=== PATIENT | female | born 1975 | race Caucasian/White ===

== ENCOUNTER 2020-11-16 19:10 | Emergency (ER) | payer MEDICAID, OTHER ==
[~2020-11-16 19:10] MED LIST: Acetaminophen/oxyCODONE 325-5 MG Tab ONE
[2020-11-16] MEDS ORDERED: HYDROmorphone 2 MG/ML SDV IM ONE (19:24)
[2020-11-16] MEDS ORDERED: Ketorolac 60 MG/2 ML SDV IM ONE (19:24)
--- NOTE | 2020-11-16 22:03 | ER ---
HISTORY OF PRESENT ILLNESS: A 44-year-old lady here with complaints of falling last evening in the apartment she is staying in. She fell for really no reason, just lost her balance, she tells me. She thinks she could have tripped over a carpet. She has been just taking it easy today, but the pain seems to keep getting worse. She is pointing to the left hip area lateral aspect when describing the area of pain. She states that her pain is currently 15/10. The patient denies any pain, numbness, or tingling radiating down her leg. She tells me that she does have a pain contract for Percocet 10/325 that she usually takes on a p.r.n. basis for low back pain issues and she is out of those medications. She also has Flexeril that she can take. She states she does not usually use NSAIDs very often because of some involvement with her kidneys. OBJECTIVE: GENERAL APPEARANCE: The patient is awake and alert. She is obviously uncomfortable. VITAL SIGNS: Reviewed as listed. MUSCULOSKELETAL: Examining the left hip reveals the skin is intact. There is no bruising or discoloration. The entire lateral radiating around to the posterior aspect is the area that is painful. She states that she was having pain on the front, but this seems to have improved over the course of the day. The patient has a lot of trouble trying to move her left leg at this time. LABORATORY DATA AND X-RAY: X-ray of the left hip was obtained. Radiologist report is negative for fracture. DIAGNOSIS: Contusion injury to left hip. TREATMENT PLAN: The patient was given Toradol 60 mg IM and Dilaudid 2 mg IM. She states this brought her pain down to a tolerable level. She is to be discharged with crutches. Activity should be minimal with the use of crutches and minimal weightbearing with the left leg. I will give her a small take-home bottle of Percocet 5/325. She is to use these as needed and she is to make sure she takes her Flexeril. She is to apply ice frequently, and followup should be in the clinic in 2 to 3 days and followup sooner as needed. The patient is agreeable with the treatment plan and has no further questions. CRS/MODL /[id number]
--- NOTE | 2020-11-17 08:13 | CR ---
Date of Service: 11/16/20 Clinical Data: Hip pain after falling. PELVIS AND LEFT HIP: No priors. No acute fracture or dislocation. No lytic or blastic bone lesions. There is degenerative disk disease at multiple levels in the lower lumbar spine. No other significant findings. [id number] [facility]
== END 2020-11-16 21:10 | disposition home or self-care (01) ==
LOC: LB.ED 19:10
DX: S70.02XA Contusion of left hip, initial encounter (principal); W18.39XA Other fall on same level, initial encounter
CPT/HCPCS: 73502-LT; 96372; 99283; 99283-25; A9270-GY; J1170; J1885

== ENCOUNTER 2020-11-17 02:10 | Emergency (ER) | payer MEDICAID, OTHER ==
[2020-11-17] MEDS ORDERED: Sodium Chloride 0.9% 1,000 ML IV ONE ×2 (02:21→02:22)
[2020-11-17] MEDS ORDERED: EPINEPHrine 1:10,000 1 MG/10 ML Syringe IVPUSH ONE (02:21)
[2020-11-17] MEDS ORDERED: Naloxone 2 MG/2 ML Syringe IVPUSH PRN ×2 (02:25)
[2020-11-17] MEDS ORDERED: 50% Dextrose in Water 50 ML Syringe IVPUSH ONE ×3 (02:45→03:06)
--- NOTE | 2020-11-17 04:12 | ER ---
HISTORY OF PRESENT ILLNESS: A 44-year-old lady who came in by ambulance in full cardiac arrest with CPR in progress. Her significant other tells me that she woke him up and she was shaky and did not feel good. He is not sure if she was having a diabetic reaction or a seizure. Then, she became unresponsive and he started CPR. They live only about half a mile from the hospital. There was no pulse and no breathing. Shock was not necessary per AED upon arriving to the ER. Initial treatment plan: Two IO sites were obtained. The patient was given epi 1 mg followed by Narcan 2 mg. We repeated this x1, D50 was given 1 amp as well and normal saline was started in bolus form. I started to palpate a pulse shortly afterwards and the pulse became stronger. CPR was discontinued and the patient had a pulse initially in the 40s, which became stronger and then it was not long and she was starting to attempt to breathe. A Agustín airway had been put in initially upon arrival at the ER and the patient returned to spontaneous circulation gradually getting a more steady and regular pulse and regular breathing. She did have a blood pressure at this time initially in the 80/40 range, which improved as well over the next few minutes. Blood sugar was read initially by EMS as high, a 2nd blood sugar was taken, read as low. She was then given the D50 and this was repeated x1. Her vitals continued to improve. The 2nd blood pressure was in the 140/80 range and the patient at this point was responding to painful stimuli. DIAGNOSIS: Cardiac arrest with return of spontaneous circulation, etiology yet unclear. TREATMENT PLAN: At this point, arrangements were made to [facility] the patient to [place]. Dr. Shetty, street light lamp cleaner accepted the patient and she was transferred from our facility approximately 3:30 a.m by [facility]. CRS/MODL /[id number] SRIDHAR
--- NOTE | 2020-11-17 08:17 | CR ---
Date of Service: 01/17/21 Clinical Data: CPR AP CHEST: No priors. The patient has taken a very poor inspiration The heart size is normal. The pulmonary vasculature appears prominent with cephalization of flow. There are poorly defined infiltrates in both upper lungs. The lungs are otherwise clear. No pneumothorax. No pleural effusions. [id number] [facility]
== END 2020-11-17 03:23 ==
LOC: LB.ED 02:10
DX: I46.9 Cardiac arrest, cause unspecified (principal)
CPT/HCPCS: 36415; 36680; 51702; 71045; 80053; 80307; 84484; 85025; 85610; 92950; 93005; 99285-25; A0425; A0429; J0171; J2310; J7030

== ENCOUNTER 2020-11-22 18:10 | Emergency (ER) | payer MEDICAID ==
--- NOTE | 2020-11-22 18:17 | EDM.PDOC ---
ED HPI GENERAL MEDICAL PROBLEM - General Chief Complaint: General Stated Complaint: ABDOMINAL PAIN Time Seen by Provider: 11/22/20 18:16 Source of Information: Reports: Patient History Limitations: Reports: No Limitations - History of Present Illness INITIAL COMMENTS - FREE TEXT/NARRATIVE: presented to the ER with a c/o b/l lower rib cage pain. Reports that she was recently d/cd from OSH after she was admitted for care post -CPR on her. c/o pain at the site of Macario CPR. no fever or chills. no cough. is using oxycodone - but reports it's not taking care of her pain. Onset: Gradual Duration: Day(s): (3) Location: Reports: Chest Quality: Reports: Ache Severity: Severe Improves with: Reports: None Worsens with: Reports: Movement Mid-Sternal Chest Pain Score (Numeric/FACES): 9 - Related Data Allergies Allergy/AdvReac Type Severity Reaction Status Date / Time morphine Allergy Nausea Verified 11/22/20 18:30 Sulfa (Sulfonamide Allergy Rash Verified 11/22/20 18:30 Antibiotics) sulfamethoxazole Allergy Indigestion Verified 11/22/20 18:30 [From Bactrim] trimethoprim [From Bactrim] Allergy Indigestion Verified 11/22/20 18:30 Home Meds: Home Meds Acyclovir 400 mg PO BID 11/16/20 [History] Amylase/Lipase/Protease [Creon DR 12,000 Units] 1 cap PO DAILY 11/16/20 [Hi story] Cyclobenzaprine [Flexeril] 1 tab PO BID 11/16/20 [History] Fluconazole [Diflucan] 200 mg PO WEEKLY 11/16/20 [History] Furosemide [Lasix] 20 mg PO DAILY 11/16/20 [History] Gabapentin [Neurontin] 300 mg PO TID 11/16/20 [History] Insulin Detemir [Levemir Flextouch] 35 units SQ BID 11/16/20 [History] Liraglutide [Victoza] 1.8 units SQ DAILY 11/16/20 [History] Ondansetron [Zofran ODT] 4 mg PO DAILY 11/16/20 [History] Pantoprazole 20 mg PO BIDAC 11/16/20 [History] allopurinoL [Zyloprim] 1 tab PO DAILY 11/16/20 [History] carvediloL [Carvedilol] 12.5 mg PO BID 11/16/20 [History] lisinopriL [Lisinopril] 1 tab PO BID 11/16/20 [History] oxyCODONE HCl/Acetaminophen [Percocet 10-325 mg Tablet] 1 tab PO Q6H PRN 11/16/20 [History] Ketorolac [Toradol] 10 mg PO Q6H PRN #12 tab 11/22/20 [Rx] Past Medical History Cardiovascular History: Reports: Hypertension Gastrointestinal History: Reports: Pancreatitis Musculoskeletal History: Reports: Back Pain, Chronic, Fracture Other Musculoskeletal History: right ankle Endocrine/Metabolic History: Reports: Diabetes, Type II Social & Family History - Family History Family Medical History: Unobtainable - Caffeine Use Caffeine Use: Reports: Coffee, Soda ED ROS GENERAL - Review of Systems Review Of Systems: See Below Constitutional: Reports: No Symptoms HEENT: Reports: No Symptoms Cardiovascular: Reports: No Symptoms GI/Abdominal: Reports: No Symptoms Skin: Reports: No Symptoms Neurological: Reports: No Symptoms Psychiatric: Reports: No Symptoms ED EXAM, GENERAL - Physical Exam Exam: See Below Exam Limited By: No Limitations General Appearance: Alert, WD/WN, No Apparent Distress Eye Exam: Bilateral Eye: EOMI Respiratory/Chest: No Respiratory Distress, Lungs Clear, Other (mild TTP over b/l ribs and sternum) Cardiovascular: Normal Peripheral Pulses, Regular Rate, Rhythm GI/Abdominal: Normal Bowel Sounds, Soft, Non-Tender Neurological: Alert, Oriented, No Motor/Sensory Deficits Psychiatric: Normal Affect, Anxious Course - Vital Signs Last Recorded V/S: Last Vital Signs Temp 36.6 C 11/22/20 18:10 Pulse 94 11/22/20 18:10 Resp 16 11/22/20 18:10 BP 139/90 11/22/20 18:10 Pulse Ox 97 11/22/20 18:10 - Orders/Labs/Meds Orders: Active Orders 24 hr Category Date Time Status CXR [Chest 1V Frontal] [CR] Stat Exams 11/22/20 19:17 Ordered Labs: Laboratory Tests 11/22/20 11/22/20 Range/Units 18:35 18:35 WBC 7.6 D (4.0-11.0) K/uL RBC 3.38 L (3.80-5.80) M/uL Hgb 9.8 L (11.5-16.5) g/dL Hct 30.3 L (37.0-47.0) % MCV 90 (76-96) fL MCH 29.0 (27.0-32.0) pg MCHC 32.3 (31.0-35.0) g/dL RDW 23.3 H (11.0-16.0) % Plt Count 316 (150-500) K/uL MPV 9.7 (6.0-10.0) fL Sodium 140 (136-145) mmol/L Potassium 4.3 D (3.5-5.1) mmol/L Chloride 104 (98-107) mmol/L Carbon Dioxide 28.6 (21.0-32.0) mmol/L Anion Gap 11.7 (5.0-15.0) mmol/L BUN 18 D (8-26) mg/dL Creatinine 1.31 H D (0.55-1.02) mg/dL Est Cr Clr Drug Dosing 65.82 mL/min Estimated GFR (MDRD) 44 L (>60) MLS/MIN BUN/Creatinine Ratio 13.7 (6-25) Glucose 207 H D (74-100) mg/dL Calcium 9.6 (8.5-10.1) mg/dL Total Bilirubin 0.3 (0.0-1.0) mg/dL AST 39 H (15-37) U/L ALT 49 (12-78) U/L Alkaline Phosphatase 183 H (46-116) U/L Total Protein 5.7 L (6.4-8.2) g/dL Albumin 2.4 L (3.4-5.0) g/dL Globulin 3.3 (2.2-4.2) g/dL Albumin/Globulin Ratio 0.7 L (0.8-2.0) Lipase < 10 L (73-393) U/L Meds: Medications Discontinued Medications Generic Name Dose Route Start Last Admin Trade Name Freq PRN Reason Stop Dose Admin Ketorolac Tromethamine 60 mg 11/22/20 19:17 11/22/20 19:21 Ketorolac 60 Mg/2 Ml Sdv IM 11/22/20 19:18 60 mg ONETIME ONE Administration Ketorolac Tromethamine Confirm 11/22/20 19:27 11/22/20 19:23 Ketorolac 60 Mg/2 Ml Sdv Administered 11/22/20 19:28 Not Given Dose 60 mg .ROUTE .STK-MED ONE - Re-Assessments/Exams Free Text/Narrative Re-Assessment/Exam: labs were ordered including CBC, CMP and lipase CXR - no e/o infiltrations or fracture Toradol 60mg IM - helped with pain will be prescribed PO toradol Departure - Departure Time of Disposition: 19:45 Disposition: Home, Self-Care 01 Condition: Good Clinical Impression: Chest wall contusion Qualifiers: Encounter type: initial encounter Laterality: left Qualified Code(s): S20.212A - Contusion of left front wall of thorax, initial encounter - Discharge Information *PRESCRIPTION DRUG MONITORING PROGRAM REVIEWED*: Not Applicable *COPY OF PRESCRIPTION DRUG MONITORING REPORT IN PATIENT NILO: Not Applicable Prescriptions: Ketorolac [Toradol] 10 mg PO Q6H PRN #12 tab PRN Reason: Pain (Moderate 4-6) Instructions: Contusion, [id number] Referrals: PCP,None [Primary Care Provider] - Forms: ED Department Discharge Additional Instructions: - take pain medications as prescribed - increase activities slowly as tolerated - follow up with your PCP as needed Sepsis Event Note (ED) - Focused Exam Vital Signs: Vital Signs Temp Pulse Resp BP Pulse Ox 11/22/20 18:10 36.6 C 94 16 139/90 97 - Problem List & Annotations (1) Chest wall contusion SNOMED Code(s): 32341928 Code(s): S20.219A - CONTUSION OF UNSPECIFIED FRONT WALL OF THORAX, INIT ENCNTR Status: Acute Priority: Low Current Visit: Yes Qualifiers: Encounter type: initial encounter Laterality: left Qualified Code(s): S20.212A - Contusion of left front wall of thorax, initial encounter - Problem List Review Problem List Initiated/Reviewed/Updated: Yes - My Orders Last 24 Hours: My Active Orders 11/22/20 19:17 CXR [Chest 1V Frontal] [CR] Stat - Assessment/Plan Last 24 Hours: My Active Orders 11/22/20 19:17 CXR [Chest 1V Frontal] [CR] Stat Plan: - take pain medications as prescribed - increase activities slowly as tolerated - follow up with your PCP as needed
[2020-11-22] MEDS: Ketorolac 60 MG/2 ML SDV IM ONE (19:21)
[2020-11-22] MEDS: Ketorolac 60 MG/2 ML SDV ONE (19:23)
--- NOTE | 2020-11-23 07:11 | CR ---
Date of Service: 11/22/20 Clinical Data: lower chest pain AP CHEST: Comparison is made to a prior exam dated 11/17/20. The heart size is normal. The pulmonary vascular congestion on the prior exam is nearly completely resolved. The lungs are clear. No pneumothorax. No pleural effusions. No evidence of acute intrathoracic disease. [id number] [facility]
== END 2020-11-22 19:54 | disposition home or self-care (01) ==
LOC: LB.ED 18:10
DX: S20.212A Contusion of left front wall of thorax, initial encounter (principal); I10 Essential (primary) hypertension; E11.9 Type 2 diabetes mellitus without complications; Z79.4 Long term (current) use of insulin; Z79.899 Other long term (current) drug therapy; Z88.6 Allergy status to analgesic agent; Z88.2 Allergy status to sulfonamides; Z88.1 Allergy status to other antibiotic agents; X58.XXXA Exposure to other specified factors, initial encounter
CPT/HCPCS: 36415; 71045; 80053; 83690; 85027; 96372; 99283; 99283-25; J1885

== ENCOUNTER 2020-11-29 18:08 | Emergency (ER) | payer MEDICAID ==
[2020-11-29] MEDS ORDERED: Ketorolac 60 MG/2 ML SDV IM ONE (18:44)
[2020-11-29] MEDS ORDERED: fentaNYL 100 MCG/2 ML SDV IM STA (18:55)
[2020-11-29] MEDS ORDERED: LORazepam 2 MG/ML SDV IM ONE (18:57)
[2020-11-29] MEDS ORDERED: Sodium Chloride 0.9% 10 ML Syringe FLUSH PRN (19:20)
[2020-11-29] MEDS ORDERED: fentaNYL 100 MCG/2 ML SDV IVPUSH STA (19:20)
[2020-11-29] MEDS ORDERED: HYDROmorphone 2 MG/ML SDV IVPUSH ONE (19:47)
[2020-11-29] MEDS ORDERED: Lidocaine 5% 700 MG Patch TOP ONE (21:04)
--- NOTE | 2020-11-29 21:05 | EDM.PDOC ---
ED HPI GENERAL MEDICAL PROBLEM - General Chief Complaint: General Stated Complaint: hip pain Time Seen by Provider: 11/29/20 18:40 Source of Information: Reports: Patient History Limitations: Reports: No Limitations - History of Present Illness INITIAL COMMENTS - FREE TEXT/NARRATIVE: patient presented to the ER with a c/o left hip pain. h/o left hip fracture 2 weeks ago - treated non-surgically with a walker/crutches. Reports that she felt a snapping pain in the left hip today while doing laundry - pain 10 out of 10. Patient came to the ER - crying and asking for narcotics for control her pain. She called the ER prior to her coming here to inform of her arrival. no fall or trauma today. h/o chronic pain and chronic opioids use. Also recent complications due to na rcotics overdose. she is a patient of pain clinic in [place] - prior moving to this [facility] few months ago - daily Percocet use. Multiple visits to the ER within the last several weeks seeking narcotics. Patient admits consuming alcohol prior to arrival to the ER. Left Hip Pain Score (Numeric/FACES): 10 - Related Data Allergies Allergy/AdvReac Type Severity Reaction Status Date / Time morphine Allergy Nausea Verified 11/29/20 18:41 Sulfa (Sulfonamide Allergy Rash Verified 11/29/20 18:41 Antibiotics) sulfamethoxazole Allergy Indigestion Verified 11/29/20 18:41 [From Bactrim] trimethoprim [From Bactrim] Allergy Indigestion Verified 11/29/20 18:41 Home Meds: Home Meds Acyclovir 400 mg PO BID 11/16/20 [History] Amylase/Lipase/Protease [Manuela RAMACHANDRAN 12,000 Units] 1 cap PO DAILY 11/16/20 [History] Cyclobenzaprine [Flexeril] 1 tab PO BID 11/16/20 [History] Fluconazole [Diflucan] 200 mg PO WEEKLY 11/16/20 [History] Furosemide [Lasix] 20 mg PO DAILY 11/16/20 [History] Gabapentin [Neurontin] 300 mg PO TID 11/16/20 [History] Insulin Detemir [Levemir Flextouch] 35 units SQ BID 11/16/20 [History] Liraglutide [Victoza] 1.8 units SQ DAILY 11/16/20 [History] Ondansetron [Zofran ODT] 4 mg PO DAILY 11/16/20 [History] Pantoprazole 20 mg PO BIDAC 11/16/20 [History] allopurinoL [Zyloprim] 1 tab PO DAILY 11/16/20 [History] carvediloL [Carvedilol] 12.5 mg PO BID 11/16/20 [History] lisinopriL [Lisinopril] 1 tab PO BID 11/16/20 [History] oxyCODONE HCl/Acetaminophen [Percocet 10-325 mg Tablet] 1 tab PO Q6H PRN 11/16/20 [History] Ketorolac [Toradol] 10 mg PO Q6H PRN #12 tab 11/22/20 [Rx] Ketorolac [Toradol] 10 mg PO Q6H PRN #10 tab 11/25/20 [Rx] Ketorolac [Toradol] 10 mg PO TID PRN #6 tab 11/29/20 [Rx] Past Medical History Cardiovascular History: Reports: Hypertension Gastrointestinal History: Reports: Pancreatitis Musculoskeletal History: Reports: Back Pain, Chronic, Fracture Other Musculoskeletal History: right ankle Endocrine/Metabolic History: Reports: Diabetes, Type II Social & Family History - Family History Family Medical History: No Pertinent Family History - Tobacco Use Tobacco Use Status *Q: Unknown Ever Used Tobacco - Caffeine Use Caffeine Use: Reports: Coffee - Recreational Drug Use Recreational Drug Use: No ED ROS GENERAL - Review of Systems Review Of Systems: See Below Constitutional: Reports: No Symptoms HEENT: Reports: No Symptoms Respiratory: Reports: No Symptoms Cardiovascular: Reports: No Symptoms GI/Abdominal: Reports: No Symptoms Musculoskeletal: Reports: Leg Pain Skin: Reports: No Symptoms Neurological: Reports: No Symptoms Psychiatric: Reports: Anxiety ED EXAM, GENERAL - Physical Exam Exam: See Below Exam Limited By: Intoxication General Appearance: Alert, Anxious, Moderate Distress Eye Exam: Bilateral Eye: EOMI, PERRL Head: Atraumatic, Normocephalic Neck: Normal Inspection Respiratory/Chest: No Respiratory Distress, Lungs Clear, Normal Breath Sounds Cardiovascular: Normal Peripheral Pulses, Regular Rate, Rhythm GI/Abdominal: Normal Bowel Sounds Back Exam: Normal Inspection, Full Range of Motion Extremities: Limited Range of Motion (LLE) Neurological: Alert, Oriented, Other (anxiety, screaming and crying) Psychiatric: Anxious Course - Vital Signs Last Recorded V/S: Last Vital Signs Temp 36.9 C 11/29/20 18:34 Pulse 78 11/29/20 20:13 Resp 16 11/29/20 20:13 BP 136/87 11/29/20 20:13 Pulse Ox 96 11/29/20 20:13 - Orders/Labs/Meds Orders: Active Orders 24 hr Category Date Time Status Saline Lock Insert [OM.PC] Routine Oth 11/29/20 19:20 Ordered Labs: Laboratory Tests 11/29/20 Range/Units 20:20 POC Glucose 120 H (74-110) mg/dL Meds: Medications Discontinued Medications Generic Name Dose Route Start Last Admin Trade Name Freq PRN Reason Stop Dose Admin Fentanyl 50 mcg 11/29/20 18:55 11/29/20 19:00 Fentanyl 100 Mcg/2 Ml Sdv IM 11/29/20 18:56 50 mcg NOW STA Administration Fentanyl 50 mcg 11/29/20 19:20 11/29/20 19:26 Fentanyl 100 Mcg/2 Ml Sdv IVPUSH 11/29/20 19:21 50 mcg NOW STA Administration Hydromorphone HCl 0.5 mg 11/29/20 19:47 11/29/20 19:48 Hydromorphone 2 Mg/Ml Sdv IVPUSH 11/29/20 19:48 0.5 mg ONETIME ONE Administration Ketorolac Tromethamine 60 mg 11/29/20 18:44 11/29/20 18:47 Ketorolac 60 Mg/2 Ml Sdv IM 11/29/20 18:45 60 mg ONETIME ONE Administration Lidocaine 700 mg 11/29/20 21:04 11/29/20 22:14 Lidocaine 5% 700 Mg Patch TOP 11/29/20 21:05 700 mg ONETIME ONE Administration Lorazepam 1 mg 11/29/20 18:57 11/29/20 19:13 Lorazepam 2 Mg/Ml Sdv IM 11/29/20 18:58 1 mg ONETIME ONE Administration Sodium Chloride 10 ml 11/29/20 19:20 Sodium Chloride 0.9% 10 Ml Syringe FLUSH ASDIRECTED PRN Keep Vein Open - Re-Assessments/Exams Free Text/Narrative Re-Assessment/Exam: was given IM fentanyl 50mcg x2 for pain control, also IM Ativan for anxiety. Reports that her pain didn't improve and wants more narcotics. Refuse to cooperate or move for further assessment unless she gets more pain meds. IV line was established - IV Toradol and morphine were given - still reports pain 10 out of 10 - even though she seems more calmed and sedated from the Ativan and pain meds. xray hip was taken - showed no changes from previous left hip fracture. Her significant other has arrived to the scene - and has expressed his concerns to her persistent request for narcotics - and h/o addiction. Patient's is showing a concerning behavior of exacerbating her pain for the sake of obtaining more opioids. At some point she admitted to me that she is hooked up to narcotics because of her past and needs them to control her pain - but she isn't a '' drug seeker ''. had a conversation with the patient - that I won't be prescription her any opioids. She was disappointed but she calmed down and stopped crying and asked to be d/cd home. Prior to her leaving - she asking for something extra for pain - I've applied a lidocaine patch on the left hip area. She left the ER with her significant other Departure - Departure Time of Disposition: 21:25 Disposition: Home, Self-Care 01 Condition: Good Clinical Impression: Left hip pain, Drug-seeking behavior, Chronic prescription opiate use Hip fracture, left Qualifiers: Encounter type: subsequent encounter Fracture type: closed Fracture healing: with routine healing Qualified Code(s): S72.002D - Fracture of unspecified part of neck of left femur, subsequent encounter for closed fracture with routine healing - Discharge Information *PRESCRIPTION DRUG MONITORING PROGRAM REVIEWED*: Not Applicable *COPY OF PRESCRIPTION DRUG MONITORING REPORT IN PATIENT NILO: Not Applicable Prescriptions: Ketorolac [Toradol] 10 mg PO TID PRN #6 tab PRN Reason: Pain (Moderate 4-6) Instructions: Hip Pain, Hip Fracture Forms: ED Department Discharge Additional Instructions: - continue home meds as before - recommend to rest - and minimize putting weight on the affected limb - follow up with your PCP in 3-7 days for pain control as needed - do not put weight on the affected limb Sepsis Event Note (ED) - Evaluation Sepsis Screening Result: No Definite Risk - Problem List & Annotations (1) Chronic prescription opiate use SNOMED Code(s): 556006215 Code(s): Z79.891 - LADLE BUILDER (CURRENT) USE OF OPIATE ANALGESIC Status: Acute Priority: Medium (2) Drug-seeking behavior SNOMED Code(s): 589641845 Code(s): Z76.5 - MALINGERER [CONSCIOUS SIMULATION] Status: Acute Priority: Medium (3) Hip fracture, left SNOMED Code(s): 084706558, 52114535664521430 Code(s): S72.002A - FRACTURE OF UNSP PART OF NECK OF LEFT FEMUR, INIT Status: Acute Priority: Low Qualifiers: Encounter type: subsequent encounter Fracture type: closed Fracture healing: with routine healing Qualified Code(s): S72.002D - Fracture of unspecified part of neck of left femur, subsequent encounter for closed fracture with routine healing (4) Left hip pain SNOMED Code(s): 28018223 Code(s): M25.552 - PAIN IN LEFT HIP Status: Acute Priority: Low - Problem List Review Problem List Initiated/Reviewed/Updated: Yes - My Orders Last 24 Hours: My Active Orders 11/29/20 19:20 Saline Lock Insert [OM.PC] Routine - Assessment/Plan Last 24 Hours: My Active Orders 11/29/20 19:20 Saline Lock Insert [OM.PC] Routine Plan: - follow up with your PCP or pain clinic - avoid putting weight on the affected hip - recommend to continue using lidocaine patch for pain control
--- NOTE | 2020-11-30 07:42 | CR ---
DATE OF SERVICE: 11/29/20 CLINICAL DATA: pain LEFT HIP: A single view was performed. There is an oblique fracture through the subcapital femoral neck with coxa vara deformity. No other acute abnormalities. [id number] [facility]
== END 2020-11-29 21:37 | disposition home or self-care (01) ==
LOC: LB.ED 18:08
DX: S72.002D Fracture of unspecified part of neck of left femur, subsequent encounter for closed fracture with routine healing (principal); Z76.5 Malingerer [conscious simulation]; Z79.891 Long term (current) use of opiate analgesic; I10 Essential (primary) hypertension; E11.9 Type 2 diabetes mellitus without complications; Z88.6 Allergy status to analgesic agent; Z88.2 Allergy status to sulfonamides; Z88.1 Allergy status to other antibiotic agents; Z79.4 Long term (current) use of insulin; X58.XXXD Exposure to other specified factors, subsequent encounter
CPT/HCPCS: 73501-LT; 82947; 96372; 96374; 96375; 99283-25; A0425; A0429; A9270-GY; J1170; J1885; J2060; J3010